=== PATIENT | male | born 1995 ===

== ENCOUNTER 2024-01-19 19:41 | Emergency (ER) | payer OTHER ==
[~2024-01-19] VITALS: Ht 160 cm; Wt 74.8 kg
[2024-01-19] MEDS ORDERED: Diphth,Pertuss(Acell),Tet Vac 0.5 ML VIAL IM ONE (20:30)
== END 2024-01-19 21:23 | disposition home or self-care (01) ==
LOC: ER 19:41
DX: S50.811A Abrasion of right forearm, initial encounter (principal); V89.2XXA Person injured in unspecified motor-vehicle accident, traffic, initial encounter
CPT/HCPCS: 73090; 90471; 90715; 99283-25